=== PATIENT | female | born 2000 | race Caucasian/White ===

== ENCOUNTER 2021-11-27 13:19 | Emergency (ER) | payer BC ==
[2021-11-27] MEDS ORDERED: Ketorolac 60 MG/2 ML SDV IM ONE (14:33)
[2021-11-27] MEDS ORDERED: Acetaminophen/HYDROcodone 325-5 MG Tab PO ONE (15:35)
== END 2021-11-27 16:05 | disposition home or self-care (01) ==
LOC: MW.ED 13:19
DX: M25.511 Pain in right shoulder (principal); Z88.0 Allergy status to penicillin; Z91.040 Latex allergy status; Z88.5 Allergy status to narcotic agent; Z88.8 Allergy status to other drugs, medicaments and biological substances
CPT/HCPCS: 73030; 73060; 96372; 99283; A9270; J1885; 99282